=== PATIENT | male | born 1960 | race Caucasian/White ===

== ENCOUNTER 2022-10-06 11:49 | Emergency (ER) | payer BC, SELFPAY ==
[2022-10-06 12:08] VITALS: BP 133/82; PULSE 74; RESP 18; TEMP 36.8; O2SAT 99; BMI 22.9
[2022-10-06 14:40] VITALS: BP 116/77; PULSE 64; RESP 16; O2SAT 98
--- NOTE | 2022-10-06 14:59 | ED_ITS ---
HPI - General Adult General Chief complaint: Shoulder Injury/Pain Stated complaint: shoulder pain Time Seen by Provider: 10/06/22 14:41 Source: patient Mode of arrival: ambulatory Limitations: no limitations History of Present Illness HPI narrative: 62-year-old male coming in today complaining of shoulder pain. Pain started on Monday, so 4 days ago. With a discomfort that has slowly progressed to sharp pain. Pain is located on the anterior shoulder does not radiate. Any movement makes it worse keeping it still makes it better. He denies pain in any other joint. He denies any fevers or chills. He denies any swelling or erythema. He states that he was riding his motorcycle all day Monday. On Monday he was able to plow snow. But every day the pain has gotten worse. Patient does state that he has had pain on off that shoulder for a long time, but has never gotten this bad. Related Data Allergies Allergy/AdvReac Type Severity Reaction Status Date / Time No Known Drug Allergies Allergy Verified 10/06/22 12:13 Review of Systems Status of ROS: Reports: 10 or more systems reviewed and unremarkable except as noted in History and below [facility] Social History Smoking Status: Current every day smoker Do you use any of these nicotine containing products: None Second hand tobacco smoke exposure: Yes How often do you have a drink containing alcohol: monthly or less How many standard drinks containing alcohol do you have on a typical day: 1 or 2 How often do you have six or more drinks on one occasion: Never AUDIT-C Alcohol total score: 1 Non-prescribed substance use: denies use service: Yes Exam Narrative: Exam Narrative: Well-nourished well-developed patient in no acute distress. Alert and oriented. Answers questions appropriately. Mood and affect are appropriate. HEENT: Normocephalic atraumatic. Pupils are equally round reactive to light. Extraocular muscles are intact. Conjunctivae are moist without any icterus noted. Extremities: Shoulder has normal appearance and contour. He has acute tenderness of the anterior shoulder right at the insertion of the biceps head. No pain to palpation anywhere else. He has a normal lift-off. He has good range of motion but it causes him significant pain. He also has pain when he flexes the bicep. The bicep appears to be intact. No pain on the superior posterior shoulder. Skin: Well perfused without any obvious rashes. Const: Vital Signs, click to edit/add: Vital Signs - 24 hr 10/06/22 12:08 10/06/22 14:40 Temperature 98.2 F Pulse Rate [Right Pulse Oximeter] 74 64 Respiratory Rate 18 16 Blood Pressure [Le ft Upper Arm] 133/82 Blood Pressure [Ri ght Upper Arm] 116/77 Pulse Oximetry 99 98 Oxygen Delivery Me thod Room Air Room Air Course Vital Signs Vital signs: Initial Vital Signs Temperature 98.2 F 10/06/22 12:08 Temperature Source Temporal Artery Scan 10/06/22 12:08 Pulse Rate 74 10/06/22 12:08 Pulse Rhythm 10/06/22 12:08 Respiratory Rate 18 10/06/22 12:08 Blood Pressure 133/82 10/06/22 12:08 Blood Pressure Mean 99 10/06/22 12:08 Blood Pressure Position Sitting 10/06/22 12:08 Pulse Oximetry 99 10/06/22 12:08 Oxygen Delivery Method 10/06/22 12:08 Vital Signs Temperature 98.2 F 10/06/22 12:08 Pulse Rate 74 10/06/22 12:08 Respiratory Rate 18 10/06/22 12:08 Blood Pressure 133/82 10/06/22 12:08 Pulse Oximetry 99 10/06/22 12:08 Oxygen Delivery Method 10/06/22 12:08 Temperature 98.2 F 10/06/22 12:08 Pulse Rate 64 10/06/22 14:40 Respiratory Rate 16 10/06/22 14:40 Blood Pressure 116/77 10/06/22 14:40 Pulse Oximetry 98 10/06/22 14:40 Oxygen Delivery Method 10/06/22 14:40 Medical Decision Making MDM Narrative Medical decision making narrative: 70-year-old male coming in today were shoulder pain. History and physical concerning for tendinitis. At this point will treat with ibuprofen 3 times a day with meals, sling for mild immobilization. I want him to follow up with Orthopedics in 1 week if he is not missing any improvement certainly return if things get worse. Patient was agreeable and had no other questions. Discharge Plan Discharge Clinical Impression: Acute shoulder pain, Tendonitis Patient Disposition: Home, Self-Care Condition: Stable Additional Instructions: Use sling as needed for immobilization and comfort. Do gentle stretching and [id number] exercises daily. Use ibuprofen 600-800 mg 3 times a day with meals for the next 3-5 days. Follow-up with orthopedic surgeon if you are not noticing an improvement in 1 week. Stand Alone Forms: [employer] Info Instructions
== END 2022-10-06 15:20 | disposition home or self-care (01) ==
LOC: ED 15:13
PROVIDERS: Emergency Provider Family Medicine
DX: M25.519 Pain in unspecified shoulder (principal)
CPT/HCPCS: 99282; 99283